=== PATIENT | female | born 1975 | race Caucasian/White ===

== ENCOUNTER 2021-01-22 08:56 | Emergency (ER) | payer MEDICAID ==
[~2021-01-22] VITALS: Ht 165.1 cm; Wt 94.3 kg
[2021-01-22 08:57] VITALS: BP_SYST 150
[2021-01-22 09:54] LABS: BASOPHILS % (AUTO) 0.4 % (0.0-2.0); EOSINOPHILS # (AUTO) 0.2 K/uL (0.0-0.4); EOSINOPHILS % (AUTO) 3.1 % (0.0-4.0); HEMATOCRIT 39.5 % (36-48); HEMOGLOBIN 13.5 g/dL (12.0-16.0); LYMPHOCYTES # (AUTO) 1.9 K/uL (1.0-5.5); LYMPHOCYTES % (AUTO) 33.5 % (20.5-51.5); MEAN CORPUSCULAR HEMOGLOBIN 29 pg (27-31); MEAN CORPUSCULAR HGB CONC 34 % (32-36); MEAN CORPUSCULAR VOLUME 86 fL (79.0-98.0); MONOCYTES # (AUTO) 0.3 K/uL (0.0-1.0); MONOCYTES % (AUTO) 5.8 % (1.7-9.3); NEUTROPHILS # (AUTO) 3.3 K/uL (1.8-7.7); NEUTROPHILS % (AUTO) 57.2 % (40.0-70.0); PLATELET COUNT (AUTO) 294 K/uL (130-430); RED BLOOD CELL COUNT(AUTO) 4.58 MIL/uL (4.2-6.2); RED CELL DISTRIBUTION WIDTH 13.1 % (9.0-15.0); WHITE BLOOD COUNT (AUTO) 5.8 K/uL (4.8-10.8)
[2021-01-22 10:20] LABS: ALBUMIN 3.6 g/dL (3.4-4.8); CALCIUM 8.5 mg/dL (8.4-11.0); CREATININE 0.77 mg/dL (0.55-1.30); POTASSIUM 4.1 mmol/L (3.5-5.1); TOTAL BILIRUBIN 0.8 mg/dL (0.0-1.0)
[2021-01-22 10:54] VITALS: BP_SYST 150
== END 2021-01-22 10:54 | disposition home or self-care (01) ==
LOC: SED 08:56
DX: G62.9 Polyneuropathy, unspecified (principal)
CPT/HCPCS: 36415; 70450-TC; 76376; 80053; 85025; 99284

== ENCOUNTER 2022-07-01 23:20 | Observation (INO) | payer BC, MEDICAID ==
[~2022-07-01] VITALS: Ht 165.1 cm; Wt 87.5 kg
[2022-07-01 23:24] VITALS: BP_SYST 183
[2022-07-02 00:25] LABS: BASOPHILS % (AUTO) 0.7 % (0.0-2.0); EOSINOPHILS # (AUTO) 0.2 K/uL (0.0-0.4); EOSINOPHILS % (AUTO) 2.8 % (0.0-4.0); HEMATOCRIT 36.2 % (36-48); HEMOGLOBIN 12.2 g/dL (12.0-16.0); LYMPHOCYTES # (AUTO) 2.6 K/uL (1.0-5.5); LYMPHOCYTES % (AUTO) 35.5 % (20.5-51.5); MEAN CORPUSCULAR HEMOGLOBIN 27 pg (27-31); MEAN CORPUSCULAR HGB CONC 34 % (32-36); MEAN CORPUSCULAR VOLUME 81 fL (79.0-98.0); MONOCYTES # (AUTO) 0.3 K/uL (0.0-1.0); MONOCYTES % (AUTO) 4.8 % (1.7-9.3); NEUTROPHILS # (AUTO) 4.1 K/uL (1.8-7.7); NEUTROPHILS % (AUTO) 56.2 % (40.0-70.0); PLATELET COUNT (AUTO) 288 K/uL (130-430); RED BLOOD CELL COUNT(AUTO) 4.45 MIL/uL (4.2-6.2); WHITE BLOOD COUNT (AUTO) 7.2 K/uL (4.8-10.8)
[2022-07-02] MEDS ORDERED: ENALAPRILAT DIHYDRATE 1.25 MG/ML VIAL IVP ONE (00:30)
[2022-07-02 00:34] LABS: ANION GAP 7 (5-15); CALCIUM 8.5 mg/dL (8.4-11.0); CHLORIDE 101 mmol/L (98-107); CREATININE 0.85 mg/dL (0.55-1.30); GFR AFRICAN AMERICAN 92 mL/min (>90); GLUCOSE 90 mg/dL (70-99); UREA NITROGEN, BLOOD 14 mg/dL (8-21)
[2022-07-02 00:41] LABS: ALANINE AMINOTRANSFERASE 22 U/L (12-78); ALBUMIN 3.5 g/dL (3.4-4.8); ASPARTATE AMINOTRANSFERASE 11 U/L (10-37); TOTAL BILIRUBIN 0.3 mg/dL (0.0-1.0)
[2022-07-02] MEDS ORDERED: hydrALAZINE HCL 20 MG/ML VIAL IVP ONE (02:30)
[2022-07-02] MEDS ORDERED: cloNIDine HCL 0.1 MG TABLET PO PRN (02:30)
[2022-07-02] MEDS ORDERED: hydrALAZINE HCL 25 MG TABLET PO ONE (02:30)
[2022-07-02 02:40] LABS: BILIRUBIN,URINE NEGATIVE (NEGATIVE); BLOOD, URINE 1+ (NEGATIVE); COLOR,URINE YELLOW (YELLOW); GLUCOSE,URINE NEGATIVE (NEGATIVE); KETONES,URINE NEGATIVE (NEGATIVE); LEUKOCYTE ESTERASE ,URINE NEGATIVE (NEGATIVE); NITRITE, URINE NEGATIVE (NEGATIVE); PROTEIN URINE NEGATIVE (NEGATIVE); UROBILINOGEN,URINE 0.2 (0.2-1.0)
[2022-07-02 02:43] LABS: CLARITY/URINE HAZY (CLEAR)
[2022-07-02 02:54] LABS: BARBITURATE, URINE NEGATIVE (NEG <=200); BENZODIAZEPINE, URINE NEGATIVE (NEG <=150); CANNABINOID, URINE NEGATIVE (NEG <=50); COCAINE, URINE NEGATIVE (NEG <=150); METHAMPHETAMINES SCREEN,URINE NEGATIVE (NEG <=500); OPIATE, URINE NEGATIVE (NEG <=100); PHENCYCLIDINE SCREEN,URINE NEGATIVE (NEG <=25); UR TRICYCLIC ANTIDEPRESSANTS NEGATIVE (NEG <=300); URINE AMPHETAMINE NEGATIVE (NEG <=500); URINE METHADONE NEGATIVE (NEG <=200); URINE OXYCODONE SCREEN NEGATIVE (NEG <=100); URINE PROPOXYPHENE SCREEN NEGATIVE (NEG <=300)
[2022-07-02 03:13] LABS: BACTERIA,URINE FEW /HPF (None Seen); WBC,URINE 0-3 /HPF (0-3)
[2022-07-02 03:18] VITALS: BP_SYST 161
[2022-07-02 03:24] VITALS: BP_SYST 161
[2022-07-02 03:45] VITALS: BP_SYST 139
[2022-07-02] MEDS ORDERED: hydrALAZINE HCL 25 MG TABLET PO SCH ×2 (06:00→14:00)
[2022-07-02] MEDS ORDERED: EXCEDRIN EXTRA STRENGTH PO PRN (07:00)
[2022-07-02 07:20] VITALS: BP_SYST 149
[2022-07-02] MEDS ORDERED: MUPIROCIN 2% TOPICAL OINTMENT 22 GM NS PRN (07:45)
[2022-07-02] MEDS ORDERED: NACL 0.9% 1,000 ML IV SCH (07:45)
[2022-07-02] MEDS ORDERED: POTASSIUM CHLORIDE 20 MEQ TAB.PRT.SR PO PRN (07:45)
[2022-07-02] MEDS ORDERED: ONDANSETRON HCL 4 MG/2 ML VIAL IVP PRN (07:45)
[2022-07-02] MEDS ORDERED: DOCUSATE SODIUM 100 MG CAPSULE PO PRN (07:45)
[2022-07-02] MEDS ORDERED: ACETAMINOPHEN 325 MG TABLET PO PRN (07:45)
[2022-07-02] MEDS ORDERED: MAGNESIUM SULFATE 50 ML IV PRN (07:45)
[2022-07-02] MEDS ORDERED: MORPHINE 2 MG/ML INJ. SYRINGE IVP PRN ×2 (07:45)
[2022-07-02] MEDS ORDERED: ZOLPIDEM TARTRATE 5 MG TABLET PO PRN (07:45)
[2022-07-02] MEDS ORDERED: LORazepam 2 MG/ML VIAL IVP PRN (07:45)
[2022-07-02] MEDS ORDERED: NALOXONE HCL 0.4 MG/ML AMP (NARCAN) IVP PRN ×2 (07:45)
[2022-07-02] MEDS ORDERED: METO50TA7 PO (08:36)
[2022-07-02] MEDS ORDERED: LISI10TA29 PO (08:36)
[2022-07-02] MEDS ORDERED: LORA-259 PO (08:37)
[2022-07-02] MEDS ORDERED: METOPROLOL SUCCINATE 50 MG TAB.SR.24H (TOPROL XL) PO SCH (09:00)
[2022-07-02] MEDS ORDERED: lisinopriL 20 MG TABLET PO SCH (09:00)
[2022-07-02 12:01] VITALS: BP_SYST 150
[2022-07-02 13:55] VITALS: BP_SYST 148
== END 2022-07-02 14:10 | disposition home or self-care (01) ==
LOC: SED 23:20 → INTOOBSV 07-02 02:17 → STU 07-02 02:17
PROVIDERS: ADMIT General Practice; ATTEND General Practice
DX: I16.0 Hypertensive urgency (principal); Z20.822 Contact with and (suspected) exposure to COVID-19; G43.919 Migraine, unspecified, intractable, without status migrainosus; E66.9 Obesity, unspecified; J45.909 Unspecified asthma, uncomplicated; I10 Essential (primary) hypertension; Z90.49 Acquired absence of other specified parts of digestive tract; Z79.899 Other long term (current) drug therapy
CPT/HCPCS: 93306; 99284; 96361; 96374; 96375; 87426; 80307; 80053; 81000; 84443; 85025; 84484; 36415; J0360; G0378; 99285

== ENCOUNTER 2023-02-12 17:00 | Emergency (ER) | payer BC, MEDICAID ==
[~2023-02-12] VITALS: Ht 165.1 cm; Wt 92.5 kg
[~2023-02-12 17:00] MED LIST: LISI10TA29 PO; LORA-259 PO; METO50TA7 PO
[2023-02-12 17:30] VITALS: BP_SYST 170; PULSE 54; RESP 18; TEMP 98.3; O2SAT 96
[2023-02-12] MEDS ORDERED: DICL75TA5 PO (20:18)
[2023-02-12 20:21] VITALS: BP_SYST 168; PULSE 68; RESP 18; TEMP 98.3; O2SAT 98
== END 2023-02-12 20:21 | disposition home or self-care (01) ==
LOC: SED 17:00
DX: G44.209 Tension-type headache, unspecified, not intractable (principal); H92.02 Otalgia, left ear; J45.909 Unspecified asthma, uncomplicated; Z79.899 Other long term (current) drug therapy
CPT/HCPCS: 70450-TC; 76376; 81025; 99284

== ENCOUNTER 2023-10-14 11:36 | Emergency (ER) | payer OTHER ==
[~2023-10-14] VITALS: Ht 165.1 cm; Wt 95.3 kg
[~2023-10-14 11:36] MED LIST changes: +DICL75TA5 PO
[2023-10-14 11:43] VITALS: BP_SYST 147; PULSE 70; RESP 16; TEMP 97.6; O2SAT 96
[2023-10-14 13:10] LABS: BASOPHILS % (AUTO) 0.6 % (0.0-2.0); EOSINOPHILS # (AUTO) 0.3 K/uL (0.0-0.4); EOSINOPHILS % (AUTO) 4.7 % (0.0-4.0); HEMATOCRIT 40.7 % (36-48); HEMOGLOBIN 13.5 g/dL (12.0-16.0); LYMPHOCYTES % (AUTO) 34.5 % (20.5-51.5); MEAN CORPUSCULAR HEMOGLOBIN 29 pg (27-31); MEAN CORPUSCULAR HGB CONC 33 % (32-36); MEAN CORPUSCULAR VOLUME 86 fL (79.0-98.0); MONOCYTES # (AUTO) 0.3 K/uL (0.0-1.0); MONOCYTES % (AUTO) 5.3 % (1.7-9.3); NEUTROPHILS # (AUTO) 3.1 K/uL (1.8-7.7); NEUTROPHILS % (AUTO) 54.9 % (40.0-70.0); PLATELET COUNT (AUTO) 290 K/uL (130-430); RED BLOOD CELL COUNT(AUTO) 4.72 MIL/uL (4.2-6.2); RED CELL DISTRIBUTION WIDTH 13.7 % (9.0-15.0); WHITE BLOOD COUNT (AUTO) 5.7 K/uL (4.8-10.8)
[2023-10-14] MEDS: LORazepam 2 MG/ML VIAL IVP ONE (13:21)
[2023-10-14 13:42] LABS: ANION GAP 12 (5-15); CALCIUM 8.7 mg/dL (8.4-11.0); CARBON DIOXIDE 23 mmol/L (23-29); CHLORIDE 104 mmol/L (98-107); CREATININE 0.76 mg/dL (0.55-1.30); GFR AFRICAN AMERICAN 104 mL/min (>90); GLUCOSE 77 mg/dL (74-106); LIPASE 37 U/L (16-77); SODIUM SERUM 139 mmol/L (136-145); UREA NITROGEN, BLOOD 14 mg/dL (8-21)
[2023-10-14 13:59] LABS: GFR NON AFRICAN-AMERICAN 86 mL/min (>90)
[2023-10-14 15:59] VITALS: BP_SYST 126; PULSE 73; RESP 16; TEMP 97.6; O2SAT 97
== END 2023-10-14 15:50 | disposition left against medical advice (07) ==
LOC: SED 11:36
DX: R07.89 Other chest pain (principal); G43.909 Migraine, unspecified, not intractable, without status migrainosus; F41.9 Anxiety disorder, unspecified; I10 Essential (primary) hypertension; J45.909 Unspecified asthma, uncomplicated; Z90.49 Acquired absence of other specified parts of digestive tract; Z98.890 Other specified postprocedural states; Z79.899 Other long term (current) drug therapy; Z91.013 Allergy to seafood
CPT/HCPCS: 36415; 71045; 80048; 81025; 83690; 83880; 84484; 85025; 85379; 93005; 99285